=== PATIENT | male | born 1970 | race Caucasian/White ===

== ENCOUNTER 2016-09-27 15:50 | Emergency (ER) | payer OTHER ==
[~2016-09-27] VITALS: Ht 177.8 cm; Wt 90.9 kg
[2016-09-27] MEDS ORDERED: ROXICODONE5 MG PO (16:46)
[2016-09-27] MEDS ORDERED: ZOFRAN ODT4 MG PO (16:46)
[2016-09-27 17:58] VITALS: BP 107/61
== END 2016-09-27 17:59 | disposition home or self-care (01) ==
LOC: RME 15:50 → EME 15:50 → RME 17:59
PROC: 2W38X1Z Immobilization of Right Upper Extremity using Splint (ICD-10-PCS; principal; 2016-09-27)
DX: S52.121A Displaced fracture of head of right radius, initial encounter for closed fracture (principal); W08.XXXA Fall from other furniture, initial encounter
CPT/HCPCS: 73060; 73080; 99281; 99284